=== PATIENT | male | born 1945 | race American Indian/Alaskan Native ===

== ENCOUNTER 2016-10-08 13:10 | Emergency (ER) | payer MEDICARE ==
[2016-10-08 14:12] VITALS: BP 119/93
[2016-10-08 14:41] LABS: Basophils % (Auto) 0.6 % (0.0-1.8); Eosinophils % (Auto) 6.1 % (0.0-4.3); Hemoglobin 13.9 gm/dl (11.8-15.2); Mean Corpuscular HGB Conc 33 % (32-34); Mean Corpuscular Hemoglobin 31 pg (28-32); Mean Corpuscular Volume 93 fl (84-94); Platelet Count 256 K/mm3 (140-440); Red Cell Distribution Width 14.8 % (13.2-15.2); White Blood Count 6.2 K/mm3 (4.5-11.0)
[2016-10-08] MEDS ORDERED: TRIPLE ANTIBIOTIC TP ONE (18:55)
[2016-10-08] MEDS ORDERED: BOOSTRIX IM ONE (19:11)
--- NOTE | 2016-10-08 19:11 | Emergency Department Report ---
ED Laceration HPI - HPI Chief Complaint: Wound/Laceration Stated Complaint: LAC TO R THUMB Time Seen by Provider: 10/08/16 18:44 Occurred When: Today Location: Upper Extremity Severity: mild Tetanus Status: Not up to Date Laceration Symptoms: Yes Pain (mild 2/10), No Foreign Body Sensation, No Numbness, No Weakness Other History: Patient presents today with 2 cm laceration to the tip of his right thumb. He is on Protonix. He was with his and the was told by the shank boner to follow-up in the ED with any bleeding. ED Review of Systems ROS: Stated complaint: LAC TO R THUMB Other details as noted in HPI Constitutional: denies: chills, fever Respiratory: denies: cough, shortness of breath, wheezing Cardiovascular: denies: chest pain, palpitations Gastrointestinal: denies: abdominal pain, nausea, diarrhea Musculoskeletal: as per HPI Skin: as per HPI Neurological: denies: headache, weakness, paresthesias ED Past Medical Hx - Past Medical History Hx Hypertension: Yes Hx Deep Vein Thrombosis: Yes Hx of Cancer: Yes (prostate 2007) Hx Asthma: Yes Additional medical history: Hx of PE's and an enlarged heart - Surgical History Additional Surgical History: Prostate surgery, Catarac surgery - Social History Smoking Status: Never Smoker Substance Use Type: None - Medications Home Medications: Home Medications Medication Instructions Recorded Confirmed Last Taken Type ALBUTEROL Inhaler [ProAir HFA 2 puff IH QID PRN 02/18/16 02/18/16 Unknown History Inhaler] Beclomethasone Dipropionate [Qvar 2 inhalation IH BID 02/18/16 02/18/16 Unknown History 80MCG] NIFEdipine XL [Procardia Xl] 60 mg PO QDAY 02/18/16 02/18/16 Unknown History Omeprazole [PriLOSEC] 20 mg PO QDAY 02/18/16 02/18/16 Unknown History Rivaroxaban [Xarelto] 15 mg PO BIDDIAB #36 tablet 02/24/16 Unknown Rx Rivaroxaban [Xarelto] 20 mg PO QDAY #30 tab 02/24/16 Unknown Rx traMADol [Ultram 50 MG tab] 50 mg PO Q6HR PRN #30 tablet 02/24/16 Unknown Rx Laceration Physical Exam - Exam General: Vital signs noted. No distress. Alert and acting appropriately. Right thumb distal portion with a 2 cm laceration very superficial. Wound Length (cm): 2 Laceration Location: Other (right thumb) Laceration Exam: Yes Normal Distal CMS, No Foreign Body, No Exposed Tendon, Vessel, or Nerve, No Tendon Injury ED Course Vital Signs 10/08/16 13:50 Temperature 98.2 F Pulse Rate 100 H Respiratory 16 Rate Blood Pressure 119/93 O2 Sat by Pulse 98 Oximetry ED Medical Decision Making - Lab Data Result diagrams: 10/08/16 14:19 - Medical Decision Making Patient presents with 2 cm laceration to right thumb, wound was cleaned well with normal saline and iodine, Dermabond was applied, sterile gauze and dressing was placed. Informed patient to leave in place for 48 hours and then he can remove it. - Differential Diagnosis laceration, severed finger Critical Care Time: No Critical care attestation.: If time is entered above; I have spent that time in minutes in the direct care of this critically ill patient, excluding procedure time. ED Disposition Clinical Impression: Laceration Disposition: DISCHARGED TO HOME OR SELFCARE Is pt being admited?: No Does the pt Need Aspirin: No Condition: Stable Instructions: Laceration (ED), Finger Laceration (ED), Skin Adhesive Care (ED) Time of Disposition: 19:28
== END 2016-10-08 19:41 | disposition home or self-care (01) ==
LOC: ED 13:10
DX: S61.011A Laceration without foreign body of right thumb without damage to nail, initial encounter (principal); I10 Essential (primary) hypertension; J45.909 Unspecified asthma, uncomplicated; Z85.46 Personal history of malignant neoplasm of prostate; Z86.718 Personal history of other venous thrombosis and embolism; X58.XXXA Exposure to other specified factors, initial encounter; Y93.9 Activity, unspecified; Y92.9 Unspecified place or not applicable; Y99.9 Unspecified external cause status
CPT/HCPCS: 36415; 85025; 90715; A6250